=== PATIENT | female | born 1970 | race Caucasian/White ===

== ENCOUNTER 2021-12-10 19:01 | Inpatient (IN) ==
[2021-12-10 19:38] LABS: Appearance Urine Cloudy (Clear); Bacteria Urine Automated 1+ (Negative); Blood Urine Negative (Negative); Color Urine Dark Yellow; Epithelial Cell Urine Auto >30 /lpf (0-5); Glucose Urine UA Negative (Negative); Ketones Urine Trace (Negative); Leukocyte Esterase Urine Negative (Negative); Nitrite Urine Negative (Negative); Protein Urine 1+ (Negative); RBC Urine Automated 0-4 /hpf (0-4); Specific Gravity Urine 1.031 (1.000-1.030); Urobilinogen Urine Negative (Negative)
[2021-12-10 19:44] LABS: Bilirubin Urine 1+ (Negative)
--- NOTE | 2021-12-10 19:49 | Emergency Department Note ---
Impression & Plan Mood disorder, Depression, Suicidal ideation ED Provider Note NAME: PETE MAXWELL AGE: 51 SEX: F : 1970 ARRIVES VIA: Walk-In INFORMANT: Patient ED PROVIDER(S): Walter Rucker DO CHIEF COMPLAINT: depression HPI: Patient is a 51-year-old female with a past medical history of borderline personality disorder, depression anxiety the presents the ER feeling extremely depressed. Her 1 son will no longer talk to her and she is having issues with her . She notes he has not come home for 2 days as he wanted her to come in to be evaluated. She admits to feeling suicidal and does not feel like she should live anymore. She has no active plan. She notes she always feels suicidal and that has not changed. She denies any auditory visual hallucin ations. No headache or change in vision. No chest pain or shortness of breath. No nausea vomiting or diarrhea. Does admit to previous suicide attempts ROS: See above HPI for pertinent positives & negatives. A total of 10 systems reviewed and were otherwise negative. PAST MEDICAL HISTORY:See Below PAST SURGICAL HISTORY:See Below FAMILY HISTORY:See Below SOCIAL HISTORY:See Below HOME MEDICATIONS:See Below ALLERGIES:See Below VITALS:See Below PHYSICAL EXAMINATION: GENERAL: Sitting up in bed, alert, tearful EYE EXAM: normal conjunctiva. OROPHARYNX: no exudate, no erythema, lips, buccal mucosa, and tongue normal and mucous membranes are moist NECK: supple, no nuchal rigidity, no adenopathy, non-tender LUNGS: Clear to auscultation. Normal chest wall mechanics HEART: no murmurs, S1 normal and S2 normal ABDOMEN: abdomen soft, non-tender, normo-active bowel sounds, no masses, no rebound or guarding. UPPER EXTREMITIES: upper extremities are grossly normal. LOWER EXTREMITIES: No pitting edema. NEURO EXAM: Normal sensorium, cranial nerves II-XII grossly intact, normal speech, no gross weakness of arms, no gross weakness of legs. PSYCH: Admits to passive suicidal ideations depression and trouble functioning Observation Status: Indication: Medical stability Patient with no pertinent family history, was seen first at 1912 hrs and was necessary in order to determine medical stability and avoid unnecessary admission. Upon reevaluation, 3.5 hours of observation revealed that the patient should be admitted to 3 . Disposition date and time 12/10/2021 10:40 PM MEDICAL DECISION MAKING: Patient is a 51-year-old female who presents ER for passive suicidal ideations depression anxiety which is worsened significantly. Feels as though she can no longer function. Labs were obtained and showed a mild leukocytosis. No significant anemia. BMP along with LFTs bilirubin and TSH was unremarkable. UA was contaminated with multiple epithelial cells. was negative. Tox positive for marijuana. Covid negative. Patient was admitted to S[facility] on 201. Triage Nursing notes reviewed. Limited review of prior medical records performed Vital Signs: reviewed and remarkable for no significant abnormalities Differential diagnosis: Mood disorder, infection, hypoglycemia, electrolyte abnormalities, cardiac sources, intracerebral event, toxicologic, trauma, neurologic, as well as other pathologies. ER treatment provided: See below Diagnostics interpreted by me: ECG: none Laboratory studies: As stated above and show below. Imaging studies: See below Consultation(s): none Procedures: none Critical Care: None Past Med/Surg History Social History Smoking Status: Never smoker Preferred Language: Danish Communication Ability: Effective Medical Accounting Clerk Required: No Beliefs That Will Affect Care: None Feels Safe at Home: Yes Assistive Devices: Glasses Results & Data (ED) Vital Signs Vital Signs - 24 hr 12/10/21 19:07 12/10/21 21:55 Temperature 36.7 C Temperature Source Temporal Artery Scan Pulse Rate 97 H Pulse Rate [Left Finger] 91 H Respiratory Rate 16 19 Respiratory Effort / Characteristics Non-Labored Respiratory Depth Normal Blood Pressure [Left Arm] 148/88 H Blood Pressure Mean [Left Arm] 108 Blood Pressure Position Sitting Pulse Oximetry 99 97 Oxygen Delivery Method Room Air Room Air Sepsis Recent Fever Within 48 Hours No Sepsis New/Unexplained Change in Mental Status No Sepsis Action Taken by Nursing No Action Required Laboratory Data Result diagrams: 12/10/21 19:57 12/10/21 19:57 Lab Results 12/10/21 12/10/21 12/10/21 Range/Units 19:23 19:23 19:23 WBC (4.8-10.8) K/uL RBC (4.2-5.4) M/uL Hgb (12.0-16.0) g/dL Hct (37-47) % MCV (80-100) fL MCH (25-34) pg MCHC (32-36) g/dL RDW Std Deviation (36.4-46.3) fL RDW Coeff of Renaldo (11.5-14.5) % Plt Count (130-400) K/uL MPV (7.4-10.4) fL Immature Gran % (Auto) % Neut % (Auto) % Lymph % (Auto) % [place] % (Auto) % Eos % (Auto) % Baso % (Auto) % Neut # (Auto) (1.4-6.5) K/uL Lymph # (Auto) (1.2-3.4) K/uL [place] # (Auto) (0.11-0.59) K/uL Eos # (Auto) (0-0.5) K/uL Baso # (Auto) (0-0.2) K/uL Immature Gran # (Auto) (0.00-0.02) K/uL Sodium (136-145) mmol/L Potassium (3.5-5.1) mmol/L Chloride (98-107) mmol/L Carbon Dioxide (21-32) mmol/L Anion Gap (3-11) BUN (6-23) mg/dl Creatinine (0.6-1.2) mg/dl Est Cr Clr Drug Dosing ml/min Est GFR ( Amer) ml/min Est GFR (Non-Af Amer) ml/min BUN/Creatinine Ratio (10-20) Glucose (70-99(Fasting)) mg/dl Calcium (8.5-10.1) mg/dl Total Bilirubin (0.2-1.0) mg/dl AST (13-39) U/L ALT (7-52) U/L Alkaline Phosphatase (34-104) U/L Total Protein (6.0-8.3) gm/dl Albumin (3.4-5.0) gm/dl Globulin (2.5-4.0) gm/dl Albumin/Globulin Ratio (0.9-2) TSH (0.300-4.500) uIu/ml Urine Color Dark Yellow Urine Appearance Cloudy A (Clear) Urine pH 5.0 (4.5-7.5) Ur Specific [place] 1.031 H (1.000-1.030) Urine Protein 1+ H (Negative) Urine Glucose (UA) Negative (Negative) Urine Ketones Trace H (Negative) Urine Blood Negative (Negative) Urine Nitrite Negative (Negative) Urine Bilirubin 1+ H (Negative) Urine Urobilinogen Negative (Negative) Ur Leukocyte Esterase Negative (Negative) Urine WBC (Auto) 5-10 H (0-5) /hpf Urine RBC (Auto) 0-4 (0-4) /hpf U Hyaline Cast (Auto) 10-30 H (0-5) /lpf U Epithel Cells (Auto) >30 H (0-5) /lpf Urine Bacteria (Auto) 1+ H (Negative) Ur Renal Epithelial Cell Not Reportable POC Ur Test NEG (NEG) Salicylates (3.0-30) mg/dl Urine Opiates Screen Neg (Neg) Ur Methadone, Qual Neg (Neg) Acetaminophen (10-30) ug/ml Urine Barbiturates Neg (Neg) Ur Phencyclidine (PCP) Neg (Neg) U Amphetamin/Meth Scrn Neg (Neg) MDMA (Ecstasy) Screen Neg (Neg) U Benzodiazepines Scrn Neg (Neg) Ur Cocaine Metabolite Neg (Neg) U Marijuana (THC) Screen Pos H (Neg) Ethyl Alcohol mg/dL (<10.0) mg/dl SARS-CoV-2, RNA, NAAT (NEGATIVE) 12/10/21 12/10/21 12/10/21 Range/Units 19:57 19:57 19:57 WBC 13.66 H (4.8-10.8) K/uL RBC 4.18 L (4.2-5.4) M/uL Hgb 13.4 (12.0-16.0) g/dL Hct 37.5 (37-47) % MCV 89.7 (80-100) fL MCH 32.1 (25-34) pg MCHC 35.7 (32-36) g/dL RDW Std Deviation 43.5 (36.4-46.3) fL RDW Coeff of Renaldo 13.2 (11.5-14.5) % Plt Count 490 H (130-400) K/uL MPV 9.2 (7.4-10.4) fL Immature Gran % (Auto) 0.4 % Neut % (Auto) 77.4 % Lymph % (Auto) 14.1 % [place] % (Auto) 7.7 % Eos % (Auto) 0.3 % Baso % (Auto) 0.1 % Neut # (Auto) 10.57 H (1.4-6.5) K/uL Lymph # (Auto) 1.92 (1.2-3.4) K/uL [place] # (Auto) 1.05 H (0.11-0.59) K/uL Eos # (Auto) 0.04 (0-0.5) K/uL Baso # (Auto) 0.02 (0-0.2) K/uL Immature Gran # (Auto) 0.06 H (0.00-0.02) K/uL Sodium 139 (136-145) mmol/L Potassium 3.7 (3.5-5.1) mmol/L Chloride 101 (98-107) mmol/L Carbon Dioxide 26 (21-32) mmol/L Anion Gap 12 H (3-11) BUN 14 (6-23) mg/dl Creatinine 1.09 (0.6-1.2) mg/dl Est Cr Clr Drug Dosing 55.9 ml/min Est GFR ( Amer) 69.0 ml/min Est GFR (Non-Af Amer) 59.6 ml/min BUN/Creatinine Ratio 12.8 (10-20) Glucose 87 (70-99(Fasting)) mg/dl Calcium 9.5 (8.5-10.1) mg/dl Total Bilirubin 0.4 (0.2-1.0) mg/dl AST 15 (13-39) U/L ALT 10 (7-52) U/L Alkaline Phosphatase 93 (34-104) U/L Total Protein 7.6 (6.0-8.3) gm/dl Albumin 4.3 (3.4-5.0) gm/dl Globulin 3.3 (2.5-4.0) gm/dl Albumin/Globulin Ratio 1.3 (0.9-2) TSH 2.008 (0.300-4.500) uIu/ml Urine Color Urine Appearance (Clear) Urine pH (4.5-7.5) Ur Specific [place] (1.000-1.030) Urine Protein (Negative) Urine Glucose (UA) (Negative) Urine Ketones (Negative) Urine Blood (Negative) Urine Nitrite (Negative) Urine Bilirubin (Negative) Urine Urobilinogen (Negative) Ur Leukocyte Esterase (Negative) Urine WBC (Auto) (0-5) /hpf Urine RBC (Auto) (0-4) /hpf U Hyaline Cast (Auto) (0-5) /lpf U Epithel Cells (Auto) (0-5) /lpf Urine Bacteria (Auto) (Negative) Ur Renal Epithelial Cell POC Ur Test (NEG) Salicylates (3.0-30) mg/dl Urine Opiates Screen (Neg) Ur Methadone, Qual (Neg) Acetaminophen (10-30) ug/ml Urine Barbiturates (Neg) Ur Phencyclidine (PCP) (Neg) U Amphetamin/Meth Scrn (Neg) MDMA (Ecstasy) Screen (Neg) U Benzodiazepines Scrn (Neg) Ur Cocaine Metabolite (Neg) U Marijuana (THC) Screen (Neg) Ethyl Alcohol mg/dL (<10.0) mg/dl SARS-CoV-2, RNA, NAAT (NEGATIVE) 12/10/21 12/10/21 12/10/21 Range/Units 19:57 19:57 19:57 WBC (4.8-10.8) K/uL RBC (4.2-5.4) M/uL Hgb (12.0-16.0) g/dL Hct (37-47) % MCV (80-100) fL MCH (25-34) pg MCHC (32-36) g/dL RDW Std Deviation (36.4-46.3) fL RDW Coeff of Renaldo (11.5-14.5) % Plt Count (130-400) K/uL MPV (7.4-10.4) fL Immature Gran % (Auto) % Neut % (Auto) % Lymph % (Auto) % [place] % (Auto) % Eos % (Auto) % Baso % (Auto) % Neut # (Auto) (1.4-6.5) K/uL Lymph # (Auto) (1.2-3.4) K/uL [place] # (Auto) (0.11-0.59) K/uL Eos # (Auto) (0-0.5) K/uL Baso # (Auto) (0-0.2) K/uL Immature Gran # (Auto) (0.00-0.02) K/uL Sodium (136-145) mmol/L Potassium (3.5-5.1) mmol/L Chloride (98-107) mmol/L Carbon Dioxide (21-32) mmol/L Anion Gap (3-11) BUN (6-23) mg/dl Creatinine (0.6-1.2) mg/dl Est Cr Clr Drug Dosing ml/min Est GFR ( Amer) ml/min Est GFR (Non-Af Amer) ml/min BUN/Creatinine Ratio (10-20) Glucose (70-99(Fasting)) mg/dl Calcium (8.5-10.1) mg/dl Total Bilirubin (0.2-1.0) mg/dl AST (13-39) U/L ALT (7-52) U/L Alkaline Phosphatase (34-104) U/L Total Protein (6.0-8.3) gm/dl Albumin (3.4-5.0) gm/dl Globulin (2.5-4.0) gm/dl Albumin/Globulin Ratio (0.9-2) TSH (0.300-4.500) uIu/ml Urine Color Urine Appearance (Clear) Urine pH (4.5-7.5) Ur Specific [place] (1.000-1.030) Urine Protein (Negative) Urine Glucose (UA) (Negative) Urine Ketones (Negative) Urine Blood (Negative) Urine Nitrite (Negative) Urine Bilirubin (Negative) Urine Urobilinogen (Negative) Ur Leukocyte Esterase (Negative) Urine WBC (Auto) (0-5) /hpf Urine RBC (Auto) (0-4) /hpf U Hyaline Cast (Auto) (0-5) /lpf U Epithel Cells (Auto) (0-5) /lpf Urine Bacteria (Auto) (Negative) Ur Renal Epithelial Cell POC Ur Test (NEG) Salicylates < 3.0 L (3.0-30) mg/dl Urine Opiates Screen (Neg) Ur Methadone, Qual (Neg) Acetaminophen < 3 L (10-30) ug/ml Urine Barbiturates (Neg) Ur Phencyclidine (PCP) (Neg) U Amphetamin/Meth Scrn (Neg) MDMA (Ecstasy) Screen (Neg) U Benzodiazepines Scrn (Neg) Ur Cocaine Metabolite (Neg) U Marijuana (THC) Screen (Neg) Ethyl Alcohol mg/dL < 10.0 (<10.0) mg/dl SARS-CoV-2, RNA, NAAT NEGATIVE (NEGATIVE) Administered Medications Hydroxyzine HCl (Hydroxyzine Hcl 25 Mg Tab) 50 mg PO HSZ PRN PRN Reason: Insomnia Stop: 01/09/22 22:55 Last Admin: 12/10/21 23:18 Dose: 50 mg Documented by: [id number] Discharge Plan Visit Data Chief Complaint: Mental Health Evaluation Stated Complaint: MENTAL HEALTH EVAL ED Provider: Walter Rucker Discharge Problem: Mood disorder, Depression, Suicidal ideation Patient Disposition: Admitted As Inpatient Discharge Instructions Interventions: ED Discharge Assessment Last Done: 12/10/21 22:30 Discharge Problem: Depression Qualifiers: Depression Type: unspecified Qualified Code(s): F32.A - Depression, unspecified
[2021-12-10 20:06] LABS: Amphetamines+Metham, Urine Neg (Neg); Barbiturates, Urine Neg (Neg); Benzodiazepine, Urine Neg (Neg); Cocaine, Urine Neg (Neg); MDMA (Ecstacy), Urine Neg (Neg); Methadone, Urine Neg (Neg); Opiate, Urine Neg (Neg); Phencyclidine, Urine Neg (Neg)
[2021-12-10 20:09] LABS: Basophils # (auto) 0.02 K/uL (0-0.2); Basophils % (auto) 0.1 %; Eosinophils # (auto) 0.04 K/uL (0-0.5); Eosinophils % (auto) 0.3 %; Hematocrit (blood only) 37.5 % (37-47); Hemoglobin 13.4 g/dL (12.0-16.0); Immature Granulocytes # (auto) 0.06 K/uL (0.00-0.02); Immature Granulocytes % (auto) 0.4 %; Lymphocytes # (auto) 1.92 K/uL (1.2-3.4); Lymphocytes % (auto) 14.1 %; Mean Corpuscular Hemoglobin 32.1 pg (25-34); Mean Corpuscular Hgb Conc 35.7 g/dL (32-36); Mean Corpuscular Volume 89.7 fL (80-100); Mean Platelet Volume 9.2 fL (7.4-10.4); Monocytes # (auto) 1.05 K/uL (0.11-0.59); Monocytes % (auto) 7.7 %; Neutrophils # (auto) 10.57 K/uL (1.4-6.5); Neutrophils % (auto) 77.4 %; Platelet Count 490 K/uL (130-400); RDW Coefficient of Variation 13.2 % (11.5-14.5); RDW Standard Deviation 43.5 fL (36.4-46.3); Red Blood Count 4.18 M/uL (4.2-5.4); White Blood Count 13.66 K/uL (4.8-10.8)
[2021-12-10 20:27] LABS: Albumin Globulin Ratio 1.3 (0.9-2); Albumin Level 4.3 gm/dl (3.4-5.0); BUN Creatinine Ratio 12.8 (10-20); Bilirubin,Total 0.4 mg/dl (0.2-1.0); Calcium 9.5 mg/dl (8.5-10.1); Creatinine Clr Calc Pharmacy 55.9 ml/min; Est GFR (Non-African American) 59.6 ml/min; Globulin 3.3 gm/dl (2.5-4.0); Potassium 3.7 mmol/L (3.5-5.1); Total Protein 7.6 gm/dl (6.0-8.3)
[2021-12-10 20:40] LABS: Acetaminophen < 3 ug/ml (10-30); Salicylate < 3.0 mg/dl (3.0-30)
[2021-12-10] MEDS ORDERED: ALUMINUM/MAGNESIUM SUSP 30 ML UDC PO PRN ×2 (22:06→22:56)
[2021-12-10] MEDS ORDERED: BISMUTH SUBSALICYLATE LIQD 236 ML PO PRN ×2 (22:06→22:56)
[2021-12-10] MEDS ORDERED: ACETAMINOPHEN 325 MG TAB PO PRN ×2 (22:06→22:56)
[2021-12-10] MEDS ORDERED: MAGNESIUM HYDROXIDE SUSP 30 ML UDC PO PRN ×2 (22:06→22:56)
[2021-12-10] MEDS ORDERED: SODIUM CHLORIDE 0.65% NA SOLN 45 ML (OCEAN) PRN ×2 (22:06→22:56)
[2021-12-10] MEDS ORDERED: hydrOXYzine HCl 25 MG TAB PO PRN ×3 (22:06→22:56)
[2021-12-10] MEDS: hydrOXYzine HCl 25 MG TAB PO PRN (23:18)
--- NOTE | 2021-12-11 08:14 | History & Physical ---
Date of Service December 11, 2021 Impression / Recommendations Impression 51-year-old woman with a history of BPD, BPAD, anxiety, multiple prior suicide attempts (last 2 years ago) and prior psychiatric hospitalizations (15 years ago) admitted on 201 voluntary commitment for worsening depression and intensifying chronic SI in the context of family strain and also going through menopause. Diagnostically consistent with persistent depressive disorder and BPD per history. BPADseems inaccurate given she has been on unopposed antidepressant monotherapy for many years with no episodes of demi and no periods of elevated mood. The patient is deemed unstable and requires psychiatric hospitalization for diagnostic clarification, safety and stabilization, medication management and development of further coping skills. Discussed medication treatment options in detail including SSRIs vs SNRIs. Discussed risks, benefits and alternatives. Patient would like to start escitalopram for persistent depression and trazodone for insomnia. Reviewed side effects including but not limited to: GI, JEFFERY, vivid dreams, sexual side effects, and counseled on black box warning of potential for emergence of or increased SI and need to let staff know should this occur or should they feel unsafe. Also discussed importance of seeking emergency care following discharge if this side effect occurs in the future. AIMS 0 though she endorses intermittent muscle tics at times. (1) Persistent depressive disorder with anxious distress, currently severe: (2) Borderline personality disorder: 12/11/21: The patient was [facility] ([facility] unit) on q15 min checks (behavioral with suicide precautions) for safety. The patient will participate in group, recreational, and milieu therapies and will be offered additional individual and family sessions as clinically appropriate. -Goal of finding DBT IOP if tele-option can be identified as no local resources or programs -cross-taper Cymbalta to escitalopram: Cymbalta 60mg qd & escitalopram 5mg qd today -trazodone 25mg qhs -discontinue mirtazapine -hold seroquel given potential for significant long-term side effects/experiencing muscle tics at times and limited benefit to date -PCP follow-up appointment to discuss menopause symptoms/potential tx options -option to try gabapentin as off-label use if mood symptoms persist as some studies showing benefit in BPD -f/up on UA bacteria culture pending currently; ED providers felt inconsistent with UTI/contaminated sample d/t epithelial cells but did have slightly elevated WBC in ED Inventory Assets Strengths: trauma survivor, outpatient supports, supportive Needs: additional coping skills, safety planning, medication adjustments Risk Factors Assessment Acute risk is high given worsening depression and SI. Chronic risk is high given history of prior attempts and chronic SI with BPD. Inpatient admission to address modifiable risk factors of improved coping skills, safety planning, insomnia and depressed mood. Male: No : Yes Do You Have Access To A Gun?: No ( has guns but locked without access) Health Problems: No Mental Health Diagnoses: Yes Substance Use Disorders: No Previous Attempt: Yes Family History of Suicide: No Previous Psychiatric Hospitalization: Yes Hopelessness: Yes Smoker: No Protective Factors Assessment : Yes Employed: No Stable Relationships: Yes Supportive Family: Yes Good Rapport with Provider: Yes Psychiatric History Identifying Data PETE MAXWELL is a 51-year-old woman who currently lives in [place] with her , has a history of BPD, anxiety, multiple prior suicide attempts (last 2 years ago) and one prior psychiatric hospitalization (15 years ago) and was admitted on 12/10/21 22:07 on a 201 voluntary commitment for worsening depression and SI. Chief Complaint "When I feel neglected or overwhelmed I say I'm alright with ". History of Present Illness Jose Martin presents for admission due to worsening depression and SI in the context of multiple psychosocial stressors including being away, guilt about her son's mental health challenges, and strained family dynamics. She attributes a lot of stress to a challenging relationship with her [id number] which has precluded her from seeing her grandchildren for the last four months. Her encouraged her to get psychiatric treatment giving her an ultimatum that he would not return to their home until she did so. She endorses depressive symptoms including hopelessness, tearfulness, decreased motivation, decreased appetite, insomnia, decreased energy, and "I can't control my emotions and I'm alone constantly, I feel better if I push someone away then them leaving me". She's been doing a workbook for Borderline Personality Disorder that she started this morning. She endorses chronic SI every day or two for the last two years which has recently intensified over the last week. When the SI gets too intense she self-harms. "I feel like everyone would be better off if they didn't have to deal with me". She also experiences anxiety including restlessness, worries, muscle tension; denies panic attacks. She is currently prescribed Cymbalta 60mg qAM & 30mg qhs (for about 2 years, lats dose adjustment was about 4-6 months ago) and mirtazapine 15mg qHS (for about 6 weeks, causes chest tightness/gives her anxiety) and seroquel increased to 200mg qhs on 12/09/21 (she's unsure if it's helpful) but has not found these to be helpful. She also uses medical marijuana to help her mind relax at night but she hasn't taken that in a few days. Psychiatric ROS notable for denial of hx of demi, denial hx psychosis, denial eating disorders, hx self-harm (via cutting/scratch till she bleeds, last 6 months ago by stabbing with pen), trauma during childhood denies PTSD symptoms. Past Psychiatric History Current Psychiatric Diagnosis: Borderline personality disorder, manic depressive disorder, anxiety Outpatient Services: Pt has med management by Dr. Mcgovern via telemedicine through [facility] for last two years and therapy with Hector Hooper weekly through [facility] for the last 2 years. Previous Psych Admissions: once at [facility] ~15 years ago Do You Have Access To A Gun?: No ( has guns but locked without access) History of Previous Suicide Attempt: Yes (~3 prior) Describe Attempts in the Past: tried to shoot self two years ago, wrestled gun from her Past Medication Trials: Wellbutrin (chest tightness), Effexor, lamictal, abilify, zoloft, fluoxetine, not escitalopram, not trazodone Additional Notes: hx ECT 8 yrs ago at [facility] (was helpful at first, did it for 3 years monthly but impacted her memory); no hx TMS Past Head Trauma/Neuro History History of Concussion/Seizure: No Allergies Allergy/AdvReac Type Severity Reaction Status Date / Time No Known Allergies Allergy Verified 12/11/21 10:02 Home Medications Medication Instructions Recorded Confirmed Type conjugated estrogens 0.625 mg 0.625 mg PO DAILY 12/11/21 12/11/21 History tablet (Premarin) duloxetine 30 mg capsule,delayed 30 mg PO DAILY 12/11/21 12/11/21 History release mirtazapine 7.5 mg tablet 7.5 mg PO HS 12/11/21 12/11/21 History quetiapine 200 mg tablet,extended 200 mg PO HS 12/11/21 12/11/21 History release 24 hr Family History Family History of: Alcoholism/Drug Abuse (mother and father with alcohol and substance use d/o) Alcohol History Hx of Alcohol Use Over the Past 12 Months: No AUDIT Total Score: 0 doesn't drink any alcohol Smoking Use Have You Smoked or Used Tobacco Products in the Last 30 Days: No Smoking Status: Never smoker Substance History Hx of Prescription Med Misuse Over the Past 12 Months: No Hx of Over the Counter Med Misuse Over the Past 12 Months: No Hx of Inhalent Misuse Over the Past 12 Months: No Hx of Organic Substance Use Over the Past 12 Months: Yes (medical marijuana patient) Hx of Illegal Substances/Street Drug Use Over Past 12 Months: No Problems as a Result of Past Substance Use: None Identified Uses honey-like formulation of medical marijuana she likes that it relaxes her mind so that it doesn't race as much when she tries to sleep, nothing she doesn't like about it Personal History Living Arrangements: Home Childhood: [place]. Has younger brother. She remains in contact with her mother. No contact with her father in the last 6.5 years. 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; currently enjoys making crafts and cards ) Marital Status: Number Of Children: 2-ages 28 & 30 Beliefs That Will Affect Care: None Current Legal Problems: No Hx Legal Problems: No Hx Traumatic Life Events: Yes Patient History Medical History (Updated 12/11/21 @ 10:36 by Mary Canales MD) Borderline personality disorder Social History Smoking Status: Never smoker Preferred Language: Hungarian Communication Ability: Effective Bar Pilot Required: No Beliefs That Will Affect Care: None Feels Safe at Home: Yes Assistive Devices: Glasses Review of Systems Review of Systems: All systems reviewed & are unremarkable except as noted in HPI & below Physical Exam Psychiatric: Orientation: alert and oriented x 3 Apperance: appropriately dressed and appropriately groomed Eye Contact: good eye contact Motor Behavior: no abnormal motor movements Speech: normal rate/rhythm/volume of speech Affect: + depressed affect, + anxious affect and + tearful affect Mood: + depressed mood and + anxious mood Thought Process: goal directed thought process Thought Content: reality based without delusions Suicidal Thoughts: denies suicidal plan and denies suicidal intent; + reports suicidal thoughts (intermittent but feels safe in the hospital) Homicidal Thoughts: denies homicidal thoughts Hallucinations: no auditory hallucinations and no visual hallucinations Cognition: recent memory grossly intact, remote memory grossly intact, attention grossly intact and language grossly intact Estimated Intelligence: consistent with education level Insight: + limited insight Judgement: + limited judgement Vital Signs (Past 24 Hours): Last Vital Signs Temp 36.9 C 12/11/21 06:00 Pulse 67 12/11/21 06:12 Resp 16 12/11/21 06:00 BP 116/80 12/11/21 06:12 Pulse Ox 99 12/10/21 22:52 Exam Statement: A physical exam was performed in the ED by Dr. Rucker for the purposes of medical clearance. I accept that physical as correct and adequate for the purposes of the inpatient physical exam. Results & Data ([facility]) Laboratory Results Laboratory Results - last 24 hr 12/10/21 12/10/21 12/10/21 19:23 19:23 19:23 WBC RBC Hgb Hct MCV MCH MCHC RDW Std Deviation RDW Coeff of Renaldo Plt Count MPV Immature Gran % (Auto) Neut % (Auto) Lymph % (Auto) [place] % (Auto) Eos % (Auto) Baso % (Auto) Neut # (Auto) Lymph # (Auto) [place] # (Auto) Eos # (Auto) Baso # (Auto) Immature Gran # (Auto) Sodium Potassium Chloride Carbon Dioxide Anion Gap BUN Creatinine Est Cr Clr Drug Dosing Est GFR ( Amer) Est GFR (Non-Af Amer) BUN/Creatinine Ratio Glucose Calcium Total Bilirubin AST ALT Alkaline Phosphatase Total Protein Albumin Globulin Albumin/Globulin Ratio TSH Urine Color Dark Yellow Urine Appearance Cloudy A Urine pH 5.0 Ur Specific [place] 1.031 H Urine Protein 1+ H Urine Glucose (UA) Negative Urine Ketones Trace H Urine Blood Negative Urine Nitrite Negative Urine Bilirubin 1+ H Urine Urobilinogen Negative Ur Leukocyte Esterase Negative Urine WBC (Auto) 5-10 H Urine RBC (Auto) 0-4 U Hyaline Cast (Auto) 10-30 H U Epithel Cells (Auto) >30 H Urine Bacteria (Auto) 1+ H Ur Renal Epithelial Cell Not Reportable POC Ur Test NEG Salicylates Urine Opiates Screen Neg Ur Methadone, Qual Neg Acetaminophen Urine Barbiturates Neg Ur Phencyclidine (PCP) Neg U Amphetamin/Meth Scrn Neg MDMA (Ecstasy) Screen Neg U Benzodiazepines Scrn Neg Ur Cocaine Metabolite Neg U Marijuana (THC) Screen Pos H U Marijuana THC Carboxy Drug Screen Comment Ethyl Alcohol mg/dL SARS-CoV-2, RNA, NAAT 12/10/21 12/10/21 12/10/21 19:23 19:57 19:57 WBC 13.66 H RBC 4.18 L Hgb 13.4 Hct 37.5 MCV 89.7 MCH 32.1 MCHC 35.7 RDW Std Deviation 43.5 RDW Coeff of Renaldo 13.2 Plt Count 490 H MPV 9.2 Immature Gran % (Auto) 0.4 Neut % (Auto) 77.4 Lymph % (Auto) 14.1 [place] % (Auto) 7.7 Eos % (Auto) 0.3 Baso % (Auto) 0.1 Neut # (Auto) 10.57 H Lymph # (Auto) 1.92 [place] # (Auto) 1.05 H Eos # (Auto) 0.04 Baso # (Auto) 0.02 Immature Gran # (Auto) 0.06 H Sodium 139 Potassium 3.7 Chloride 101 Carbon Dioxide 26 Anion Gap 12 H BUN 14 Creatinine 1.09 Est Cr Clr Drug Dosing 55.9 Est GFR ( Amer) 69.0 Est GFR (Non-Af Amer) 59.6 BUN/Creatinine Ratio 12.8 Glucose 87 Calcium 9.5 Total Bilirubin 0.4 AST 15 ALT 10 Alkaline Phosphatase 93 Total Protein 7.6 Albumin 4.3 Globulin 3.3 Albumin/Globulin Ratio 1.3 TSH Urine Color Urine Appearance Urine pH Ur Specific [place] Urine Protein Urine Glucose (UA) Urine Ketones Urine Blood Urine Nitrite Urine Bilirubin Urine Urobilinogen Ur Leukocyte Esterase Urine WBC (Auto) Urine RBC (Auto) U Hyaline Cast (Auto) U Epithel Cells (Auto) Urine Bacteria (Auto) Ur Renal Epithelial Cell POC Ur Test Salicylates Urine Opiates Screen Ur Methadone, Qual Acetaminophen Urine Barbiturates Ur Phencyclidine (PCP) U Amphetamin/Meth Scrn MDMA (Ecstasy) Screen U Benzodiazepines Scrn Ur Cocaine Metabolite U Marijuana (THC) Screen U Marijuana THC Carboxy Pending Drug Screen Comment Pending Ethyl Alcohol mg/dL SARS-CoV-2, RNA, NAAT 12/10/21 12/10/21 12/10/21 19:57 19:57 19:57 WBC RBC Hgb Hct MCV MCH MCHC RDW Std Deviation RDW Coeff of Renaldo Plt Count MPV Immature Gran % (Auto) Neut % (Auto) Lymph % (Auto) [place] % (Auto) Eos % (Auto) Baso % (Auto) Neut # (Auto) Lymph # (Auto) [place] # (Auto) Eos # (Auto) Baso # (Auto) Immature Gran # (Auto) Sodium Potassium Chloride Carbon Dioxide Anion Gap BUN Creatinine Est Cr Clr Drug Dosing Est GFR ( Amer) Est GFR (Non-Af Amer) BUN/Creatinine Ratio Glucose Calcium Total Bilirubin AST ALT Alkaline Phosphatase Total Protein Albumin Globulin Albumin/Globulin Ratio TSH 2.008 Urine Color Urine Appearance Urine pH Ur Specific [place] Urine Protein Urine Glucose (UA) Urine Ketones Urine Blood Urine Nitrite Urine Bilirubin Urine Urobilinogen Ur Leukocyte Esterase Urine WBC (Auto) Urine RBC (Auto) U Hyaline Cast (Auto) U Epithel Cells (Auto) Urine Bacteria (Auto) Ur Renal Epithelial Cell POC Ur Test Salicylates < 3.0 L Urine Opiates Screen Ur Methadone, Qual Acetaminophen < 3 L Urine Barbiturates Ur Phencyclidine (PCP) U Amphetamin/Meth Scrn MDMA (Ecstasy) Screen U Benzodiazepines Scrn Ur Cocaine Metabolite U Marijuana (THC) Screen U Marijuana THC Carboxy Drug Screen Comment Ethyl Alcohol mg/dL < 10.0 SARS-CoV-2, RNA, NAAT 12/10/21 19:57 WBC RBC Hgb Hct MCV MCH MCHC RDW Std Deviation RDW Coeff of Renaldo Plt Count MPV Immature Gran % (Auto) Neut % (Auto) Lymph % (Auto) [place] % (Auto) Eos % (Auto) Baso % (Auto) Neut # (Auto) Lymph # (Auto) [place] # (Auto) Eos # (Auto) Baso # (Auto) Immature Gran # (Auto) Sodium Potassium Chloride Carbon Dioxide Anion Gap BUN Creatinine Est Cr Clr Drug Dosing Est GFR ( Amer) Est GFR (Non-Af Amer) BUN/Creatinine Ratio Glucose Calcium Total Bilirubin AST ALT Alkaline Phosphatase Total Protein Albumin Globulin Albumin/Globulin Ratio TSH Urine Color Urine Appearance Urine pH Ur Specific [place] Urine Protein Urine Glucose (UA) Urine Ketones Urine Blood Urine Nitrite Urine Bilirubin Urine Urobilinogen Ur Leukocyte Esterase Urine WBC (Auto) Urine RBC (Auto) U Hyaline Cast (Auto) U Epithel Cells (Auto) Urine Bacteria (Auto) Ur Renal Epithelial Cell POC Ur Test Salicylates Urine Opiates Screen Ur Methadone, Qual Acetaminophen Urine Barbiturates Ur Phencyclidine (PCP) U Amphetamin/Meth Scrn MDMA (Ecstasy) Screen U Benzodiazepines Scrn Ur Cocaine Metabolite U Marijuana (THC) Screen U Marijuana THC Carboxy Drug Screen Comment Ethyl Alcohol mg/dL SARS-CoV-2, RNA, NAAT NEGATIVE Current Inpatient Medications Current Inpatient Medications: Current Inpatient Medications Acetaminophen (Acetaminophen 325 Mg Tab) 650 mg PO Q4H PRN PRN Reason: Headache or Minor Fever Stop: 01/09/22 22:55 Al Hydrox/Mg Hydrox/Simethicone (Aluminum/Magnesium Susp 30 Ml Udc) 30 ml PO Q4H PRN PRN Reason: GI Upset Stop: 01/09/22 22:55 Bismuth Subsalicylate (Bismuth Subsalicylate Liqd 236 Ml) 15 ml PO PRN PRN PRN Reason: Loose Stool Stop: 01/09/22 22:55 Hydroxyzine HCl (Hydroxyzine Hcl 25 Mg Tab) 50 mg PO HSZ PRN PRN Reason: Insomnia Stop: 01/09/22 22:55 Last Admin: 12/10/21 23:18 Dose: 50 mg Documented by: Hydroxyzine HCl (Hydroxyzine Hcl 25 Mg Tab) 25 mg PO Q4H PRN PRN Reason: Anxiety Stop: 01/09/22 22:55 Magnesium Hydroxide (Magnesium Hydroxide Susp 30 Ml Udc) 30 ml PO DAILY PRN PRN Reason: Constipation Stop: 01/09/22 22:55 Sodium Chloride (Sodium Chloride 0.65% Na Soln 45 Ml ([place])) 1 - 2 sprays NA PRN PRN PRN Reason: Nasal Dryness/Congestion Stop: 01/09/22 22:55
[2021-12-11] MEDS ORDERED: DULoxetine HCL 20 MG CAP PO SCH (11:45)
[2021-12-11] MEDS: DULoxetine HCL 60 MG CAP PO SCH (12:19)
[2021-12-11] MEDS: ESCITALOPRAM OXALATE 10 MG TAB PO SCH (12:19)
[2021-12-11] MEDS ORDERED: traZODone HCL 50 MG TAB PO SCH (22:00)
[2021-12-12] MEDS: DULoxetine HCL 60 MG CAP PO SCH (09:17)
[2021-12-12] MEDS: ESCITALOPRAM OXALATE 10 MG TAB PO SCH (09:17)
--- NOTE | 2021-12-12 13:14 | Psychiatric Progress Note ---
Date of Service December 12, 2021 Impression / Recommendations Impression 51-year-old woman with a history of BPD, BPAD, anxiety, multiple prior suicide attempts (last 2 years ago) and prior psychiatric hospitalizations (15 years ago) admitted on 201 voluntary commitment for worsening depression and intensifying chronic SI in the context of family strain and also going through menopause. Diagnostically consistent with persistent depressive disorder and BPD per history. BPADseems inaccurate given she has been on unopposed antidepressant monotherapy for many years with no episodes of demi and no periods of elevated mood. The patient is deemed unstable and requires psychiatric hospitalization for diagnostic clarification, safety and stabilization, medication management and development of further coping skills. 12/12/21: As per Dr. Canales above. Minimal change. Poor sleep. (1) Persistent depressive disorder with anxious distress, currently severe: (2) Borderline personality disorder: 12/12/21: continue cross taper from cymbalta to escitalopram. address sleep medication (sleep worse last night off Remeron and Seroquel). 12/11/21: The patient was admitted to the [facility] ([facility] mental health unit) on q15 min checks (behavioral with suicide precautions) for safety. The patient will participate in group, recreational, and milieu therapies and will be offered additional individual and family sessions as clinically appropriate. -Goal of finding DBT IOP if tele-option can be identified as no local resources or programs -cross-taper Cymbalta to escitalopram: Cymbalta 60mg qd & escitalopram 5mg qd today -trazodone 25mg qhs -discontinue mirtazapine -hold seroquel given potential for significant long-term side effects/experiencing muscle tics at times and limited benefit to date -PCP follow-up appointment to discuss menopause symptoms/potential tx options -option to try gabapentin as off-label use if mood symptoms persist as some studies showing benefit in BPD -f/up on UA bacteria culture pending currently; ED providers felt inconsistent with UTI/contaminated sample d/t epithelial cells but did have slightly elevated WBC in ED Inventory Assets Strengths: trauma survivor, outpatient supports, supportive Needs: additional coping skills, safety planning, medication adjustments Risk Factors Assessment Male: No : Yes Do You Have Access To A Gun?: Yes (Guns are secured in the home) Health Problems: No Mental Health Diagnoses: Yes Substance Use Disorders: No Previous Attempt: Yes Family History of Suicide: No Previous Psychiatric Hospitalization: Yes Hopelessness: Yes Smoker: No Protective Factors Assessment : Yes Employed: No Stable Relationships: Yes Supportive Family: Yes Good Rapport with Provider: Yes Interval History Identifying Information PETE MAXWELL is a 51-year-old woman who currently lives in [place] with her , has a history of BPD, anxiety, multiple prior suicide attempts (last 2 years ago) and one prior psychiatric hospitalization (15 years ago) and was admitted on 12/10/21 22:07 on a 201 voluntary commitment for worsening depression and SI. Chief Complaint "I'm feeling some better today but didn't sleep well". Review of Systems Sleep Information Total Hours of Sleep: 6.5 Meal Information Percent Meal Consumed - Breakfast: 100 Percent Meal Consumed - Lunch: 50 Percent Meal Consumed - Dinner: 50 Subjective Subjective Patient was seen & assessed and interval progress reviewed with nursing and social work. Was overwhelmed with unit routines yesterday. She was anxious except when talking about her grandkids and dogs. Continues to rate mood around 5. Physical Exam Psychiatric Orientation: alert and oriented x 3 Apperance: appropriately dressed and appropriately groomed Eye Contact: good eye contact Motor Behavior: no abnormal motor movements Speech: normal rate/rhythm/volume of speech Affect: + depressed affect and + anxious affect Mood: + depressed mood and + anxious mood Thought Process: goal directed thought process Thought Content: reality based without delusions Suicidal Thoughts: denies suicidal plan and denies suicidal intent; + reports suicidal thoughts (intermittent but feels safe in the hospital) Homicidal Thoughts: denies homicidal thoughts Hallucinations: no auditory hallucinations and no visual hallucinations Cognition: recent memory grossly intact, remote memory grossly intact, attention grossly intact and language grossly intact Estimated Intelligence: consistent with education level Insight: + limited insight Judgement: + limited judgement Vital Signs (Past 24 Hours) Last Vital Signs Temp 36.9 C 12/12/21 06:39 Pulse 81 12/12/21 06:39 Resp 16 12/12/21 06:39 BP 124/84 12/12/21 06:39 Pulse Ox 99 12/10/21 22:52 Results & Data ([facility]) Current Inpatient Medications Current Inpatient Medications: Current Inpatient Medications Acetaminophen (Acetaminophen 325 Mg Tab) 650 mg PO Q4H PRN PRN Reason: Headache or Minor Fever Stop: 01/09/22 22:55 Al Hydrox/Mg Hydrox/Simethicone (Aluminum/Magnesium Susp 30 Ml Udc) 30 ml PO Q4H PRN PRN Reason: GI Upset Stop: 01/09/22 22:55 Bismuth Subsalicylate (Bismuth Subsalicylate Liqd 236 Ml) 15 ml PO PRN PRN PRN Reason: Loose Stool Stop: 01/09/22 22:55 Duloxetine HCl (Duloxetine Hcl 60 Mg Cap) 60 mg PO QAM MENA Stop: 01/10/22 11:44 Last Admin: 12/12/21 09:17 Dose: 60 mg Documented by: Escitalopram Oxalate (Escitalopram Oxalate 10 Mg Tab) 5 mg PO QAM MENA Stop: 01/10/22 11:44 Last Admin: 12/12/21 09:17 Dose: 5 mg Documented by: Hydroxyzine HCl (Hydroxyzine Hcl 25 Mg Tab) 50 mg PO HSZ PRN PRN Reason: Insomnia Stop: 01/09/22 22:55 Last Admin: 12/10/21 23:18 Dose: 50 mg Documented by: Hydroxyzine HCl (Hydroxyzine Hcl 25 Mg Tab) 25 mg PO Q4H PRN PRN Reason: Anxiety Stop: 01/09/22 22:55 Magnesium Hydroxide (Magnesium Hydroxide Susp 30 Ml Udc) 30 ml PO DAILY PRN PRN Reason: Constipation Stop: 01/09/22 22:55 Sodium Chloride (Sodium Chloride 0.65% Na Soln 45 Ml ([place])) 1 - 2 sprays NA PRN PRN PRN Reason: Nasal Dryness/Congestion Stop: 01/09/22 22:55 Trazodone HCl (Trazodone Hcl 50 Mg Tab) 25 mg PO HS MENA Stop: 01/10/22 21:59 Last Admin: 12/11/21 21:38 Dose: 25 mg Documented by: Mental Health & Subst Abuse Tx Psychiatrist Name of Psychiatrist: Jim Mcgovern Psychiatrist's Date of Appointment with Psychiatrist: 12/15/21 Time of Appointment with Psychiatrist: 1:00 p.m. Psychiatric Appointment Comment: Telehealth Therapist Name of Therapist: Jim Hooper Therapist's Date of Therapist Appointment: 12/15/21 Time of Therapist Appointment: 12:00 p.m. Therapy Appointment Comment: [address] [place] [address] Post Discharge Appointments Primary Care Physician Name Of Family Doctor: Dwight Davalos Primary Care Provider Appointment Comment: [address] [place] [address] [place] [address] Contact Information Discharge Discharge Address: [address] [place] [address], [place] [id number]
[2021-12-12] MEDS: hydrOXYzine HCl 25 MG TAB PO PRN (20:28)
[2021-12-12] MEDS ORDERED: traZODone HCL 50 MG TAB PO SCH (22:00)
[2021-12-13 08:31] LABS: Marijuana Quant, GCMS Urine 1005 ng/mL (<5)
[2021-12-13] MEDS: DULoxetine HCL 30 MG CAP PO SCH (09:00)
[2021-12-13] MEDS: ESCITALOPRAM OXALATE 10 MG TAB PO SCH (09:01)
--- NOTE | 2021-12-13 14:37 | Psychiatric Progress Note ---
Date of Service December 13, 2021 Impression / Recommendations Impression 51-year-old woman with a history of BPD, BPAD, anxiety, multiple prior suicide attempts (last 2 years ago) and prior psychiatric hospitalizations (15 years ago) admitted on 201 voluntary commitment for worsening depression and intensifying chronic SI in the context of family strain and also going through menopause. Diagnostically consistent with persistent depressive disorder and BPD per history. BPADseems inaccurate given she has been on unopposed antidepressant monotherapy for many years with no episodes of demi and no periods of elevated mood. The patient is deemed unstable and requires psychiatric hospitalization for diagnostic clarification, safety and stabilization, medication management and development of further coping skills. 12/13/21: As per Dr. Canales above. Improving. (1) Persistent depressive disorder with anxious distress, currently severe: (2) Borderline personality disorder: 12/13/21: increase trazodone, needs family meeting & safety planning 12/12/21: continue cross taper from cymbalta to escitalopram. address sleep medication (sleep worse last night off Remeron and Seroquel). 12/11/21: The patient was admitted to the [facility] ([facility] mental health unit) on q15 min checks (behavioral with suicide precautions) for safety. The patient will participate in group, recreational, and milieu therapies and will be offered additional individual and family sessions as clinically appropriate. -Goal of finding DBT IOP if tele-option can be identified as no local resources or programs -cross-taper Cymbalta to escitalopram: Cymbalta 60mg qd & escitalopram 5mg qd today -trazodone 25mg qhs -discontinue mirtazapine -hold seroquel given potential for significant long-term side effects/experie ncing muscle tics at times and limited benefit to date -PCP follow-up appointment to discuss menopause symptoms/potential tx options -option to try gabapentin as off-label use if mood symptoms persist as some studies showing benefit in BPD -f/up on UA bacteria culture pending currently; ED providers felt inconsistent with UTI/contaminated sample d/t epithelial cells but did have slightly elevated WBC in ED Inventory Assets Strengths: trauma survivor, outpatient supports, supportive Needs: additional coping skills, safety planning, medication adjustments Risk Factors Assessment Male: No : Yes Do You Have Access To A Gun?: Yes (Guns are secured in the home) Health Problems: No Mental Health Diagnoses: Yes Substance Use Disorders: No Previous Attempt: Yes Family History of Suicide: No Previous Psychiatric Hospitalization: Yes Hopelessness: Yes Smoker: No Protective Factors Assessment : Yes Employed: No Stable Relationships: Yes Supportive Family: Yes Good Rapport with Provider: Yes Interval History Identifying Information PETE MAXWELL is a 51-year-old woman who currently lives in [place] with her , has a history of BPD, anxiety, multiple prior suicide attempts (last 2 years ago) and one prior psychiatric hospitalization (15 years ago) and was admitted on 12/10/21 22:07 on a 201 voluntary commitment for worsening d epression and SI. Chief Complaint "I'm feeling some better today and connected with my ". Review of Systems Sleep Information Total Hours of Sleep: 6.5 Meal Information Percent Meal Consumed - Breakfast: 25 Percent Meal Consumed - Lunch: 40 Percent Meal Consumed - Dinner: 50 Subjective Subjective Patient was seen & assessed and interval progress reviewed with nursing and social work. Tolerating medication changes. Required Vistaril despite increase in trazodone. Is happy to better understand dx and "why I overreact to things." Physical Exam Psychiatric Orientation: alert and oriented x 3 Apperance: appropriately dressed and appropriately groomed Eye Contact: good eye contact Motor Behavior: no abnormal motor movements Speech: normal rate/rhythm/volume of speech Affect: + anxious affect Mood: + depressed mood Thought Process: goal directed thought process Thought Content: reality based without delusions Suicidal Thoughts: denies suicidal thoughts Homicidal Thoughts: denies homicidal thoughts Hallucinations: no auditory hallucinations and no visual hallucinations Cognition: recent memory grossly intact, remote memory grossly intact, attention grossly intact and language grossly intact Estimated Intelligence: consistent with education level Insight: + fair insight Judgement: + limited judgement Vital Signs (Past 24 Hours) Last Vital Signs Temp 36.7 C 12/13/21 06:36 Pulse 99 H 12/13/21 06:37 Resp 16 12/13/21 06:36 BP 123/86 12/13/21 06:37 Pulse Ox 99 12/10/21 22:52 Results & Data ([facility]) Laboratory Results Laboratory Results - last 24 hr 12/10/21 19:23 U Marijuana THC Carboxy 1005 H Drug Screen Comment SEE NOTE Current Inpatient Medications Current Inpatient Medications: Current Inpatient Medications Acetaminophen (Acetaminophen 325 Mg Tab) 650 mg PO Q4H PRN PRN Reason: Headache or Minor Fever Stop: 01/09/22 22:55 Al Hydrox/Mg Hydrox/Simethicone (Aluminum/Magnesium Susp 30 Ml Udc) 30 ml PO Q4H PRN PRN Reason: GI Upset Stop: 01/09/22 22:55 Bismuth Subsalicylate (Bismuth Subsalicylate Liqd 236 Ml) 15 ml PO PRN PRN PRN Reason: Loose Stool Stop: 01/09/22 22:55 Duloxetine HCl (Duloxetine Hcl 30 Mg Cap) 30 mg PO QAM MENA Stop: 01/13/22 10:00 Last Admin: 12/13/21 09:00 Dose: 30 mg Documented by: Escitalopram Oxalate (Escitalopram Oxalate 10 Mg Tab) 10 mg PO QAM MENA Stop: 01/12/22 08:59 Last Admin: 12/13/21 09:01 Dose: 10 mg Documented by: Hydroxyzine HCl (Hydroxyzine Hcl 25 Mg Tab) 50 mg PO HSZ PRN PRN Reason: Insomnia Stop: 01/09/22 22:55 Last Admin: 12/12/21 20:28 Dose: 50 mg Documented by: Hydroxyzine HCl (Hydroxyzine Hcl 25 Mg Tab) 25 mg PO Q4H PRN PRN Reason: Anxiety Stop: 01/09/22 22:55 Magnesium Hydroxide (Magnesium Hydroxide Susp 30 Ml Udc) 30 ml PO DAILY PRN PRN Reason: Constipation Stop: 01/09/22 22:55 Sodium Chloride (Sodium Chloride 0.65% Na Soln 45 Ml ([place])) 1 - 2 sprays NA PRN PRN PRN Reason: Nasal Dryness/Congestion Stop: 01/09/22 22:55 Trazodone HCl (Trazodone Hcl 100 Mg Tab) 100 mg PO HS MENA Stop: 01/12/22 21:59 Mental Health & Subst Abuse Tx Psychiatrist Name of Psychiatrist: Jim Mcgovern Psychiatrist's Date of Appointment with Psychiatrist: 12/15/21 Time of Appointment with Psychiatrist: 1:00 p.m. Psychiatric Appointment Comment: Telehealth Therapist Name of Therapist: Jim Hooper Therapist's Date of Therapist Appointment: 12/15/21 Time of Therapist Appointment: 12:00 p.m. Therapy Appointment Comment: [address] [place] [address] Post Discharge Appointments Primary Care Physician Name Of Family Doctor: Dwight Davalos Primary Care Provider Appointment Comment: [address] [place] [address] [place] [address] Contact Information Discharge Discharge Address: [address] [place] [address], [place] [id number]
[2021-12-13] MEDS ORDERED: traZODone HCL 100 MG TAB PO SCH (22:00)
[2021-12-14] MEDS: DULoxetine HCL 30 MG CAP PO SCH (08:50)
[2021-12-14] MEDS: ESCITALOPRAM OXALATE 10 MG TAB PO SCH (08:50)
--- NOTE | 2021-12-14 09:30 | Discharge Summary ---
Date of Service December 14, 2021 History of Present Illness As per Dr. Canales on admission: Jose Martin presents for admission due to worsening depression and SI in the context of multiple psychosocial stressors including being away, guilt about her son's mental health challenges, and strained family dynamics. She attributes a lot of stress to a challenging relationship with her [id number] which has precluded her from seeing her grandchildren for the last four months. Her encouraged her to get psychiatric treatment giving her an ultimatum that he would not return to their home until she did so. She endorses depressive symptoms including hopelessness, tearfulness, decreased motivation, decreased appetite, insomnia, decreased energy, and "I can't control my emotions and I'm alone constantly, I feel better if I push someone away then them leaving me". She's been doing a workbook for Borderline Personality Disorder that she started this morning. She endorses chronic SI every day or two for the last two years which has recently intensified over the last week. When the SI gets too intense she self-harms. "I feel like everyone would be better off if they didn't have to deal with me". She also experiences anxiety including restlessness, worries, muscle tension; denies panic attacks. She is currently prescribed Cymbalta 60mg qAM & 30mg qhs (for about 2 years, lats dose adjustment was about 4-6 months ago) and mirtazapine 15mg qHS (for about 6 weeks, causes chest tightness/gives her anxiety) and seroquel increased to 200mg qhs on 12/09/21 (she's unsure if it's helpful) but has not found these to be helpful. She also uses medical marijuana to help her mind relax at night but she hasn't taken that in a few days. Psychiatric ROS notable for denial of hx of demi, denial hx psychosis, denial eating disorders, hx self-harm (via cutting/scratch till she bleeds, last 6 months ago by stabbing with pen), trauma during childhood denies PTSD symptoms. Physical Exam Psychiatric See admission H&P and DOD assessment. Vital Signs (Past 24 Hours) Last Vital Signs Temp 37 C 12/14/21 06:34 Pulse 84 12/14/21 06:35 Resp 16 12/14/21 06:34 BP 148/91 H 12/14/21 06:35 Pulse Ox 99 12/10/21 22:52 Principal Diagnosis persistent depressive disorder Psychiatric Data See daily stay summary. In short, safety was maintained and the patient was cooperative with care. Medication changes included discontinuation of Seroquel and Remeron in favor of a trial of trazodone as well as cross taper of Cymbalta to Lexapro. She also benefit from minimal use of Vistaril prn. She tolerated these changes well and benefited from discussions around affect regulation and underlying borderline personality disorder as driving her longstanding anxiety and depression. A family session was held with her and safety plan was completed prior to discharge. Day of Discharge Assessment Today the patient voices readiness for discharge. They note improvement in mood and deny thoughts to harm self or others. Thoughts remain organized and they are improved from admission. There is no evidence of psychosis. They agree to take mediations as prescribed and keep follow-up appointments. They are stable for discharge to outpatient level of care. Transition of Care Transition Of Care Record: was reviewed with the patient Advance Directives Advance Directives Information Provided: Yes Advance Directives: No Mental Health Advance Directive: No Advance Directives on File: No Living Will: No Power of Crochet Beader: No Advance Directives Reason:: Declines as Mental Health Visit. Risk Factors Assessment Male: No : Yes Do You Have Access To A Gun?: No (Guns are secured in the home by ) Health Problems: No Mental Health Diagnoses: Yes Substance Use Disorders: No Previous Attempt: Yes Family History of Suicide: No Previous Psychiatric Hospitalization: Yes Hopelessness: Yes Smoker: No Protective Factors Assessment : Yes Employed: No Stable Relationships: Yes Supportive Family: Yes Good Rapport with Provider: Yes Tobacco Cessation at Discharge Tobacco Cessation Medication Prescribed at Discharge: Not Applicable/Non-Smoker Total Time Total Time Spent: Greater Than 30 Minutes Total Time Includes: Examination of the patient, Discharge Planning and Medication Reconciliation Discharge Data Lab Results 12/10/21 12/10/21 12/10/21 19:23 19:23 19:23 WBC RBC Hgb Hct MCV MCH MCHC RDW Std Deviation RDW Coeff of Renaldo Plt Count MPV Immature Gran % (Auto) Neut % (Auto) Lymph % (Auto) [place] % (Auto) Eos % (Auto) Baso % (Auto) Neut # (Auto) Lymph # (Auto) [place] # (Auto) Eos # (Auto) Baso # (Auto) Immature Gran # (Auto) Sodium Potassium Chloride Carbon Dioxide Anion Gap BUN Creatinine Est Cr Clr Drug Dosing Est GFR ( Amer) Est GFR (Non-Af Amer) BUN/Creatinine Ratio Glucose Calcium Total Bilirubin AST ALT Alkaline Phosphatase Total Protein Albumin Globulin Albumin/Globulin Ratio TSH Urine Color Dark Yellow Urine Appearance Cloudy A Urine pH 5.0 Ur Specific Ezel 1.031 H Urine Protein 1+ H Urine Glucose (UA) Negative Urine Ketones Trace H Urine Blood Negative Urine Nitrite Negative Urine Bilirubin 1+ H Urine Urobilinogen Negative Ur Leukocyte Esterase Negative Urine WBC (Auto) 5-10 H Urine RBC (Auto) 0-4 U Hyaline Cast (Auto) 10-30 H U Epithel Cells (Auto) >30 H Urine Bacteria (Auto) 1+ H Ur Renal Epithelial Cell Not Reportable POC Ur Test NEG Salicylates Urine Opiates Screen Neg Ur Methadone, Qual Neg Acetaminophen Urine Barbiturates Neg Ur Phencyclidine (PCP) Neg U Amphetamin/Meth Scrn Neg MDMA (Ecstasy) Screen Neg U Benzodiazepines Scrn Neg Ur Cocaine Metabolite Neg U Marijuana (THC) Screen Pos H U Marijuana THC Carboxy Drug Screen Comment Ethyl Alcohol mg/dL SARS-CoV-2, RNA, NAAT 12/10/21 12/10/21 12/10/21 19:23 19:57 19:57 WBC 13.66 H RBC 4.18 L Hgb 13.4 Hct 37.5 MCV 89.7 MCH 32.1 MCHC 35.7 RDW Std Deviation 43.5 RDW Coeff of Renaldo 13.2 Plt Count 490 H MPV 9.2 Immature Gran % (Auto) 0.4 Neut % (Auto) 77.4 Lymph % (Auto) 14.1 [place] % (Auto) 7.7 Eos % (Auto) 0.3 Baso % (Auto) 0.1 Neut # (Auto) 10.57 H Lymph # (Auto) 1.92 [place] # (Auto) 1.05 H Eos # (Auto) 0.04 Baso # (Auto) 0.02 Immature Gran # (Auto) 0.06 H Sodium 139 Potassium 3.7 Chloride 101 Carbon Dioxide 26 Anion Gap 12 H BUN 14 Creatinine 1.09 Est Cr Clr Drug Dosing 55.9 Est GFR ( Amer) 69.0 Est GFR (Non-Af Amer) 59.6 BUN/Creatinine Ratio 12.8 Glucose 87 Calcium 9.5 Total Bilirubin 0.4 AST 15 ALT 10 Alkaline Phosphatase 93 Total Protein 7.6 Albumin 4.3 Globulin 3.3 Albumin/Globulin Ratio 1.3 TSH Urine Color Urine Appearance Urine pH Ur Specific Ezel Urine Protein Urine Glucose (UA) Urine Ketones Urine Blood Urine Nitrite Urine Bilirubin Urine Urobilinogen Ur Leukocyte Esterase Urine WBC (Auto) Urine RBC (Auto) U Hyaline Cast (Auto) U Epithel Cells (Auto) Urine Bacteria (Auto) Ur Renal Epithelial Cell POC Ur Test Salicylates Urine Opiates Screen Ur Methadone, Qual Acetaminophen Urine Barbiturates Ur Phencyclidine (PCP) U Amphetamin/Meth Scrn MDMA (Ecstasy) Screen U Benzodiazepines Scrn Ur Cocaine Metabolite U Marijuana (THC) Screen U Marijuana THC Carboxy 1005 H Drug Screen Comment SEE NOTE Ethyl Alcohol mg/dL SARS-CoV-2, RNA, NAAT 12/10/21 12/10/21 12/10/21 19:57 19:57 19:57 WBC RBC Hgb Hct MCV MCH MCHC RDW Std Deviation RDW Coeff of Renaldo Plt Count MPV Immature Gran % (Auto) Neut % (Auto) Lymph % (Auto) [place] % (Auto) Eos % (Auto) Baso % (Auto) Neut # (Auto) Lymph # (Auto) [place] # (Auto) Eos # (Auto) Baso # (Auto) Immature Gran # (Auto) Sodium Potassium Chloride Carbon Dioxide Anion Gap BUN Creatinine Est Cr Clr Drug Dosing Est GFR ( Amer) Est GFR (Non-Af Amer) BUN/Creatinine Ratio Glucose Calcium Total Bilirubin AST ALT Alkaline Phosphatase Total Protein Albumin Globulin Albumin/Globulin Ratio TSH 2.008 Urine Color Urine Appearance Urine pH Ur Specific Ezel Urine Protein Urine Glucose (UA) Urine Ketones Urine Blood Urine Nitrite Urine Bilirubin Urine Urobilinogen Ur Leukocyte Esterase Urine WBC (Auto) Urine RBC (Auto) U Hyaline Cast (Auto) U Epithel Cells (Auto) Urine Bacteria (Auto) Ur Renal Epithelial Cell POC Ur Test Salicylates < 3.0 L Urine Opiates Screen Ur Methadone, Qual Acetaminophen < 3 L Urine Barbiturates Ur Phencyclidine (PCP) U Amphetamin/Meth Scrn MDMA (Ecstasy) Screen U Benzodiazepines Scrn Ur Cocaine Metabolite U Marijuana (THC) Screen U Marijuana THC Carboxy Drug Screen Comment Ethyl Alcohol mg/dL < 10.0 SARS-CoV-2, RNA, NAAT 12/10/21 19:57 WBC RBC Hgb Hct MCV MCH MCHC RDW Std Deviation RDW Coeff of Renaldo Plt Count MPV Immature Gran % (Auto) Neut % (Auto) Lymph % (Auto) [place] % (Auto) Eos % (Auto) Baso % (Auto) Neut # (Auto) Lymph # (Auto) [place] # (Auto) Eos # (Auto) Baso # (Auto) Immature Gran # (Auto) Sodium Potassium Chloride Carbon Dioxide Anion Gap BUN Creatinine Est Cr Clr Drug Dosing Est GFR ( Amer) Est GFR (Non-Af Amer) BUN/Creatinine Ratio Glucose Calcium Total Bilirubin AST ALT Alkaline Phosphatase Total Protein Albumin Globulin Albumin/Globulin Ratio TSH Urine Color Urine Appearance Urine pH Ur Specific [place]zel Urine Protein Urine Glucose (UA) Urine Ketones Urine Blood Urine Nitrite Urine Bilirubin Urine Urobilinogen Ur Leukocyte Esterase Urine WBC (Auto) Urine RBC (Auto) U Hyaline Cast (Auto) U Epithel Cells (Auto) Urine Bacteria (Auto) Ur Renal Epithelial Cell POC Ur Test Salicylates Urine Opiates Screen Ur Methadone, Qual Acetaminophen Urine Barbiturates Ur Phencyclidine (PCP) U Amphetamin/Meth Scrn MDMA (Ecstasy) Screen U Benzodiazepines Scrn Ur Cocaine Metabolite U Marijuana (THC) Screen U Marijuana THC Carboxy Drug Screen Comment Ethyl Alcohol mg/dL SARS-CoV-2, RNA, NAAT NEGATIVE Hospital Course (1) Persistent depressive disorder with anxious distress, currently severe: (2) Borderline personality disorder: 12/13/21: increase trazodone, needs family meeting & safety planning 12/12/21: continue cross taper from cymbalta to escitalopram. address sleep medication (sleep worse last night off Remeron and Seroquel). 12/11/21: The patient was admitted to the [facility] ([facility] inpatient mental health unit) on q15 min checks (behavioral with suicide precautions) for safety. The patient will participate in group, recreational, and milieu therapies and will be offered additional individual and family sessions as clinically appropriate. -Goal of finding DBT IOP if tele-option can be identified as no local resources or programs -cross-taper Cymbalta to escitalopram: Cymbalta 60mg qd & escitalopram 5mg qd today -trazodone 25mg qhs -discontinue mirtazapine -hold seroquel given potential for significant long-term side effects/experiencing muscle tics at times and limited benefit to date -PCP follow-up appointment to discuss menopause symptoms/potential tx options -option to try gabapentin as off-label use if mood symptoms persist as some studies showing benefit in BPD -f/up on UA bacteria culture pending currently; ED providers felt inconsistent with UTI/contaminated sample d/t epithelial cells but did have slightly elevated WBC in ED Mental Health & Subst Abuse Tx Psychiatrist Name of Psychiatrist: Jim Mcgovern Psychiatrist's Date of Appointment with Psychiatrist: 12/15/21 Time of Appointment with Psychiatrist: 1:00 p.m. Psychiatric Appointment Comment: Telehealth Therapist Name of Therapist: Jim Hooper Therapist's Date of Therapist Appointment: 12/15/21 Time of Therapist Appointment: 12:00 p.m. Therapy Appointment Comment: [address] [place] [address] Post Discharge Appointments Primary Care Physician Name Of Family Doctor: Dwight Davalos Primary Care Provider Appointment Comment: [address] [place] [address] [place] [address] Smoking Cessation Counseling Tobacco Cessation Medication Prescribed at Discharge: Not Applicable/Non-Smoker Contact Information Discharge Discharge Address: [address] [place] [address] Discharge Plan Discharge Items Patient Disposition: Home - Self-Care Reason For Visit: MENTAL HEALTH EVAL Discharge Diagnosis: persistent depressive disorder Activity: Resume your previous activity Non-emergency contact: Primary Care Provider, Psychiatrist and Therapist Call non-emergency contact if: you have any medication questions and your symptoms worsen Follow-up/Referrals: Ac Davalos MD [Primary Care Provider] - Diet: Regular Addtl Attending Provider Instructions: SPECIAL CARE INSTRUCTIONS: 1. Follow through with your scheduled aftercare appointments. If unable to keep an appointment, please call to reschedule. 2. Take your medication only as prescribed. Medication should not be changed or stopped without the approval of your doctor. In the event of worsening symptoms or concerns about side effects, contact your doctor immediately. 3. Utilize new healthy coping skills, anger management skills, and stress management skills learned during your hospitalization. Journal feelings and process them with a support person. Identify stressors or situations that may result in relapse, deterioration or inappropriate behaviors and develop a plan to deal with those issues. 4. If your coping skills are ineffective and you are in crisis, contact your o utpatient providers for direction. If unable to reach your providers, please call the [facility] CRISIS LINE AT , go to the [facility] walk-in center at [address], [address], [place], or go to the closest Emergency Room. 5. Avoid alcohol and un-prescribed drugs. 6. You have been provided with the Mental Health Advance Directives Pamphlet for your review. 7. Your condition is stable for discharge to outpatient level of care, but recovery is an ongoing process. Ifthoughts to harm yourself or others return, follow the safety plan developed during your stay. Planning for a safe return home includes securing weapons. Our treatment team recommends weaponsbe removed from the home until your outpatient provider reassesses your progress. In rare cases where the items themselvescannot be removed, guns and ammunitionshould be secured separatelyand keys stored by a reliable personoutside of the home. If you were admitted on an involuntary commitment, the police or other legal authorities may be involved in this process. AFTERCARE APPOINTMENTS: * Please call your insurance company prior to your scheduled appointment to confirm your aftercare providers are covered. Take your insurance information to your appointments. WHO TO CALL AND WHEN: Medical Emergencies: For questions or emergencies related to your hospital stay, please contact the Inpatient Behavioral Health Unit at [phone]. A site safety coordinator is on-call 11/04 for the Behavioral Health Unit for emergencies At any time you feel your situation is an emergency, you may also call 911 immediately. Pending Studies at Discharge: No Stand-Alone Forms: [employer], Smoking Cessation Medications and DC Order Prescriptions: New escitalopram oxalate [Lexapro] 10 mg tablet 10 mg PO DAILY Qty: 30 RF: 0 hydroxyzine pamoate [Vistaril] 25 mg capsule 25 mg PO BID PRN (Reason: anxiety) Qty: 10 RF: 0 trazodone 100 mg tablet 100 mg PO HS Qty: 30 RF: 0 Discontinued quetiapine 200 mg tablet extended release 24 hr 200 mg PO HS RF: 0 duloxetine 30 mg capsule,delayed release(DR/EC) 30 mg PO DAILY RF: 0 mirtazapine 7.5 mg tablet 7.5 mg PO HS RF: 0 Premarin 0.625 mg tablet 0.625 mg PO DAILY RF: 0 Discharge Orders: Discharge Order (Routine); Ordered 12/14/21 Ordered By: Christy Rios Admission Data Admit Date/Time: 12/10/21 22:07 Attending Provider: Christy Rios Admit Provider: Mary Canales Primary Care Provider: Ac Davalos Other Interventions: PSY Interdisciplinary Discharge Planning Last Done: 12/11/21 13:03 Coding Level of Care Code 65778 D/C day mgmt > 30 min Diagnoses Persistent depressive disorder with anxious distress, currently severe F34.1 Borderline personality disorder F60.3
[2021-12-14] MEDS ORDERED: DESTROY THIS MEDICATION ONE (10:21)
== END 2021-12-14 14:05 | disposition home or self-care (01) | DRG 881 ==
LOC: ED 19:01 → 3S 22:07 → SUATTDRO 22:07 → ED 22:30